=== PATIENT | male | born 2005 | race Caucasian/White ===

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

== ENCOUNTER 2023-01-22 16:45 | Emergency (ER) | payer SELFPAY ==
[~2023-01-22] VITALS: Ht 172.7 cm; Wt 79.4 kg
[~2023-01-22 16:45] MED LIST: IBUP-2213 PO; NALO4SPR NS; PRED20TA5 PO
[2023-01-22 17:07] VITALS: BP 152/69
--- NOTE | 2023-01-22 17:12 | NUR ---
pt ambulatory to bed 09 w mother
[2023-01-22] MEDS ORDERED: KETOROLAC 30 MG/ML VIAL IVP ONE (18:25)
[2023-01-22] MEDS ORDERED: ONDANSETRON 4 MG/2 ML VIAL IVP ONE (18:25)
[2023-01-22] MEDS ORDERED: NACL 0.9% 1,000 ML IV ONE (18:25)
--- NOTE | 2023-01-22 18:46 | NUR ---
Pt bib mother for headache x 3 days. Pt states he also has stomach pain after throwing up. Pt not actively throwing up but feels nausiated. Pt recently started psych meds. Pt is a/o x 4, vss, no ss of acute disterss, breathing equal and unlabored, speech clear. IV started. Medicated as ordered, tolerating well. Aware of need for UA.
[2023-01-22 18:57] LABS: BASOPHILS % (AUTO) 0.3 % (0.0-2.0); EOSINOPHILS # (AUTO) 0.1 K/uL (0-0.4); EOSINOPHILS % (AUTO) 2.8 % (0.0-4.0); MEAN CORPUSCULAR HEMOGLOBIN 29 pg (27-31); MEAN CORPUSCULAR HGB CONC 34 g/dL (33-37); MEAN CORPUSCULAR VOLUME 85.7 fL (80-94); MONOCYTES # (AUTO) 0.5 K/uL (0.8-1.0); MONOCYTES % (AUTO) 9.1 % (1.7-9.3); NEUTROPHILS # (AUTO) 2.4 K/uL (1.8-7.7); NEUTROPHILS % (AUTO) 47.8 % (42.2-75.2); PLATELET COUNT (AUTO) 193 K/uL (140-450); RED BLOOD CELL COUNT(AUTO) 5.14 MIL/uL (4.20-6.10)
--- NOTE | 2023-01-22 19:20 | NUR ---
RECEIVED REPORT FROM RONALD GENAO RN.
--- NOTE | 2023-01-22 19:20 | NUR ---
PT RESTING ON BED, A/OX4, NOT IN DISTRESS. ON MONITOR
--- NOTE | 2023-01-22 19:35 | NUR ---
URINE SPECIMEN SENT TO LAB
[2023-01-22 19:48] LABS: ALBUMIN 3.9 g/dL (3.4-5.0); ANION GAP 15.9 (8-16); CARBON DIOXIDE 26.5 mmol/L (21-32); CREATININE 0.8 mg/dL (0.6-1.3); POTASSIUM 3.4 mmol/L (3.5-5.1); TOTAL BILIRUBIN 0.3 mg/dL (0.0-1.0)
[2023-01-22 19:52] LABS: APPEARANCE,URINE CLEAR (CLEAR); BILIRUBIN,URINE NEGATIVE (NEGATIVE); BLOOD, URINE NEGATIVE (NEGATIVE); COLOR,URINE YELLOW (YELLOW); LEUKOCYTE ESTERASE ,URINE NEGATIVE (NEGATIVE); NITRITE, URINE NEGATIVE (NEGATIVE); UGLUCOSE NEGATIVE (NEGATIVE)
[2023-01-22 20:01] LABS: BARBITURATE, URINE NEGATIVE ng/ml (NEG <=200); BENZODIAZEPINE, URINE NEGATIVE ng/mL (NEG <=200); CANNABINOID, URINE NEGATIVE ng/mL (NEG <=50); COCAINE, URINE NEGATIVE ng/mL (NEG <=300); OPIATE, URINE NEGATIVE ng/mL (NEG <=2000); PHENCYCLIDINE SCREEN,URINE NEGATIVE ng/mL (NEG <=25)
[2023-01-22 20:30] VITALS: BP 116/61
--- NOTE | 2023-01-22 20:30 | NUR ---
Patient discharged with v/s stable. Written and verbal after care instructions given and explained. Patient verbalized understanding. Ambulatory with steady gait. All questions addressed prior to discharge. Advised to follow up with PMD.
== END 2023-01-22 20:30 | disposition home or self-care (01) ==
LOC: MED 16:45
DX: E86.0 Dehydration (principal); R51.9 Headache, unspecified; R53.1 Weakness; R11.2 Nausea with vomiting, unspecified; R10.10 Upper abdominal pain, unspecified; F17.210 Nicotine dependence, cigarettes, uncomplicated; Z79.899 Other long term (current) drug therapy; Z90.49 Acquired absence of other specified parts of digestive tract
CPT/HCPCS: 36415; 80053; 80305; 81003; 85025; 96361; 96374; 96375; 99284; J1885; J2405; J7030

== ENCOUNTER 2023-02-04 16:43 | Emergency (ER) | payer OTHER ==
[~2023-02-04] VITALS: Ht 175.3 cm; Wt 81.6 kg
[2023-02-04 16:45] VITALS: BP 119/73; PULSE 147; RESP 18; TEMP 97.8; O2SAT 97
[2023-02-04] MEDS ORDERED: NACL 0.9% 1,000 ML IV ONE (16:50)
[2023-02-04 17:24] LABS: BASOPHILS % (AUTO) 0.1 % (0.0-2.0); EOSINOPHILS # (AUTO) 0.1 K/uL (0-0.4); HEMATOCRIT 44.8 % (36-52); HEMOGLOBIN 15.2 g/dL (12.0-18.0); LYMPHOCYTES # (AUTO) 2.1 K/uL (2.0-11.5); LYMPHOCYTES % (AUTO) 24.1 % (20.5-51.1); MEAN CORPUSCULAR HEMOGLOBIN 29 pg (27-31); MEAN CORPUSCULAR HGB CONC 34 g/dL (33-37); MEAN CORPUSCULAR VOLUME 85.3 fL (80-94); MONOCYTES # (AUTO) 1.1 K/uL (0.8-1.0); MONOCYTES % (AUTO) 12.8 % (1.7-9.3); NEUTROPHILS # (AUTO) 5.5 K/uL (1.8-7.7); PLATELET COUNT (AUTO) 170 K/uL (140-450); RED BLOOD CELL COUNT(AUTO) 5.25 MIL/uL (4.20-6.10); RED CELL DISTRIBUTION WIDTH 13.3 % (11.6-13.7); WHITE BLOOD COUNT (AUTO) 8.8 K/uL (4.5-11.0)
[2023-02-04 17:39] LABS: ALBUMIN 4.1 g/dL (3.4-5.0); ANION GAP 15.5 (8-16); ASPARTATE AMINOTRANSFERASE 80 U/L (15-37); CHLORIDE 103 mmol/L (98-107); CREATININE 0.9 mg/dL (0.6-1.3); GFR ARICAN-AMERICAN 140 mL/min (>90); GLUCOSE 89 mg/dL (74-106); POTASSIUM 3.5 mmol/L (3.5-5.1); SODIUM SERUM 141 mmol/L (136-145); UREA NITROGEN, BLOOD 19 mg/dL (7-18)
[2023-02-04] MEDS ORDERED: VALP-22 PO (18:39)
[2023-02-04] MEDS ORDERED: RISP0.5T3 PO (18:39)
[2023-02-04] MEDS ORDERED: risperiDONE 1 MG TAB PO STA (19:29)
--- NOTE | 2023-02-04 19:35 | NUR ---
PT RESTING ON BED, AWAKE AND RESPONSIVE. NOT IN DISTRESS. ON MONITOR
--- NOTE | 2023-02-04 20:49 | NUR ---
DR. IBARRA AT BEDSIDE
[2023-02-04 20:50] VITALS: BP 120/81; PULSE 99; RESP 18; TEMP 97.7; O2SAT 99
[2023-02-04 21:08] LABS: BARBITURATE, URINE NEGATIVE ng/ml (NEG <=200); BENZODIAZEPINE, URINE NEGATIVE ng/mL (NEG <=200); CANNABINOID, URINE POSITIVE ng/mL (NEG <=50); COCAINE, URINE NEGATIVE ng/mL (NEG <=300); OPIATE, URINE NEGATIVE ng/mL (NEG <=2000); PHENCYCLIDINE SCREEN,URINE NEGATIVE ng/mL (NEG <=25)
== END 2023-02-04 20:50 | disposition home or self-care (01) ==
LOC: MED 16:43
DX: R07.89 Other chest pain (principal); F15.10 Other stimulant abuse, uncomplicated; F12.90 Cannabis use, unspecified, uncomplicated; Z79.899 Other long term (current) drug therapy
CPT/HCPCS: 36415; 71045; 80053; 80305; 84484; 85025; 93005; 96360; 99285; J7030